=== PATIENT | female | born 1950 | race Caucasian/White ===

== ENCOUNTER 2024-01-29 11:06 | Outpatient (AMB) | payer MEDICARE, SELFPAY ==
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
== END 2024-01-29 12:13 | disposition home or self-care (01) ==
LOC: HO.HOP 11:06
PROVIDERS: Visit Provider Clinical Nurse Specialist Psychiatric/Mental Health
DX: F41.1 Generalized anxiety disorder (principal)
CPT/HCPCS: 90792

== ENCOUNTER → 2024-01-29 11:06 | Outpatient (BNVA) | payer MEDICARE, SELFPAY | PROVIDERS: Visit Provider Clinical Nurse Specialist Psychiatric/Mental Health | DX: F41.1 Generalized anxiety disorder (principal) | CPT/HCPCS: 90792 ==

== ENCOUNTER 2024-02-21 12:17 | Outpatient (AMB) | payer MEDICARE, SELFPAY ==
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
== END 2024-02-21 12:50 | disposition home or self-care (01) ==
LOC: HO.HOP 12:17
PROVIDERS: Visit Provider Clinical Nurse Specialist Psychiatric/Mental Health
DX: F41.1 Generalized anxiety disorder (principal)
CPT/HCPCS: 90833; 99214

== ENCOUNTER → 2024-02-21 12:17 | Outpatient (BNVA) | payer MEDICARE, SELFPAY | PROVIDERS: Visit Provider Clinical Nurse Specialist Psychiatric/Mental Health | DX: F41.1 Generalized anxiety disorder (principal) | CPT/HCPCS: 99212 ==

== ENCOUNTER 2024-04-17 11:42 | Outpatient (AMB) | payer MEDICARE, SELFPAY ==
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
== END 2024-04-17 17:34 | disposition home or self-care (01) ==
LOC: HO.HOP 11:42
PROVIDERS: Visit Provider Clinical Nurse Specialist Psychiatric/Mental Health
DX: F41.1 Generalized anxiety disorder (principal)
CPT/HCPCS: 99214

== ENCOUNTER → 2024-04-17 11:42 | Outpatient (BNVA) | payer MEDICARE, SELFPAY | PROVIDERS: Visit Provider Clinical Nurse Specialist Psychiatric/Mental Health | DX: F41.1 Generalized anxiety disorder (principal) | CPT/HCPCS: 99212 ==

== ENCOUNTER 2024-06-19 11:39 | Outpatient (AMB) | payer MEDICARE, SELFPAY ==
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
== END 2024-06-19 12:10 | disposition home or self-care (01) ==
LOC: HO.HOP 11:39
PROVIDERS: Visit Provider Clinical Nurse Specialist Psychiatric/Mental Health
DX: F41.1 Generalized anxiety disorder (principal)
CPT/HCPCS: 99214

== ENCOUNTER → 2024-06-19 11:39 | Outpatient (BNVA) | payer MEDICARE, SELFPAY | PROVIDERS: Visit Provider Clinical Nurse Specialist Psychiatric/Mental Health | DX: F41.1 Generalized anxiety disorder (principal); F32.A Depression, unspecified | CPT/HCPCS: 99212 ==

== ENCOUNTER 2024-08-14 14:51 | Outpatient (AMB) | payer MEDICARE, SELFPAY ==
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
== END 2024-08-14 14:52 | disposition home or self-care (01) ==
LOC: HO.HOP 14:51
PROVIDERS: Visit Provider Clinical Nurse Specialist Psychiatric/Mental Health
DX: F41.1 Generalized anxiety disorder (principal)
CPT/HCPCS: 99214

== ENCOUNTER → 2024-08-14 14:51 | Outpatient (BNVA) | payer MEDICARE, SELFPAY | PROVIDERS: Visit Provider Clinical Nurse Specialist Psychiatric/Mental Health | DX: F41.1 Generalized anxiety disorder (principal) | CPT/HCPCS: 99212 ==

== ENCOUNTER 2024-10-02 13:12 | Outpatient (AMB) | payer MEDICARE, SELFPAY ==
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
--- OUTSIDE RECORDS SUMMARY | 2024-10-02 14:35 | XMS_ITS | Continuity of Care Document ---
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 Name Role Phone Sindy Bajwa Primary Care Physician [phone] [place] [facility] [place]): [place] 09/30/24 [facility] [address] [address]- Attending Physician: Sindy Bajwa Admitting Physician: Sindy Bajwa Referring Physician: Sindy Bajwa Encounter Type: One Time OP Allergies, Adverse Reactions, Alerts Substance Criticality Severity Reaction Reaction Severity Status penicillin Active venlafaxine rash Active Immunizations Given and Recorded Vaccine Date Status Refusal Reason influenza virus vaccine, inactivated 07/10/23 Jimenez rded influenza virus vaccine, inactivated 08/25/20 Jimenez rded SARS-CoV-2(COVID-19)mRNA-LNP vac([id number]) 07/10/23 Recorded [id number] bivalent booster vax 06/18/22 Recorded tetanus/diphtheria/pertussis, acel(Tdap) 04/10/22 Given tetanus/diphtheria/pertussis, acel(Tdap) 01/07/15 Recorded zoster vaccine, inactivated 03/15/22 Recorded zoster vaccine, inactivated 12/23/21 Recorded SARS-CoV-2 (COVID-19) mRNA-1273 vaccine 09/10/21 R ecorded SARS-CoV-2 (COVID-19) mRNA BNT-162b2 vac 12/27/20 Recorded SARS-CoV-2 (COVID-19) mRNA BNT-162b2 vac 12/05/20 Recorded Zoster Vaccine Live 03/12/14 Recorded tetanus-diphtheria toxoids (Td) 08/19/04 Recorded Medications B-Complex SR oral tablet, extended release By Mouth, Daily, 0 Refills, Maintenance, 01/16/23 1:57:00 PM EDT, Partial fill upon patient request if the prescription is for a schedule II opioid drug. Start Date: 01/16/23 Status: Ordered Repeat number: 1 fluticasone 50 mcg/inh inhalation powder 1 puffs, Inhalation, 2 times a day, # 1 each, 3 Refills, Maintenance, 08/20/23 4:22:00 PM EST, Pow[place], [facility]/pharmacy #[id number], Partial fill upon patient request if the prescription is for a schedule II opioid drug., 162, cm, 08/20/23 15:22:00 EST, Height Start Date: 08/20/23 Status: Ordered Quantity: 1.0 Unit: each Repeat number: 4 fluticasone 50 mcg/inh nasal spray 2 sprays = 100 mcg, Nares, Both, Daily in AM, # 16 Gm, 11 Refills, Maintenance, 08/08/24 7:31:00 AMEST, [place], [facility]/pharmacy #[id number], Partial fill upon patient request if the prescription is for a schedule II opioid drug., 2 sprays Nares, Both Daily in AM, 162, cm, 06/20/24 10:50:00 EDT, Height, 78.4, kg, 06/20/24 10:50:00 EDT, Dry Weight Start Date: 08/08/24 Status: Ordered Quantity: 16.0 Unit: g Repeat number: 12 hydrocortisone 2.5% topical cream 1 application, Topically, 3 times a day, # 30 Gm, 0 Refills, Maintenance, 09/06/23 2:01:00 PM EST, Cream, [facility]/pharmacy #[id number], Partial fill upon patient request if the prescription is for a schedule II opioid drug., 1 application Topically 3 times a day, 162, cm, 08/20/23 15:22:00 EST, Height Start Date: 09/06/23 Status: Ordered Quantity: 30.0 Unit: g Repeat number: 1 Lipitor 10 mg oral tablet 1 tablet = 10 mg, By Mouth, Daily, # 90 tablet, 3 Refills, Maintenance, 09/02/24 12:28:00 PM EST, Tablet, [id number], Partial fill upon patient request if the prescription is for a schedule II opioid drug., 162, cm, 06/20/24 10:50:00 EDT, Height, 78.4, kg, 06/20/24 10:50:00 EDT, Dry Weight Start Date: 09/02/24 Status: Ordered Quantity: 90.0 Unit: tablet Repeat number: 4 Magnesium Citrate By Mouth, 0 Refills, Maintenance, 08/20/23 3:21:00 PM EST, Partial fill upon patient request if theprescription is for a schedule II opioid drug. Start Date: 08/20/23 Status: Ordered Repeat number: 1 naproxen 250 mg oral tablet 250 mg, 1, tablet, By Mouth, 2 times a day, # 60 tablet, Refills 0, Maintenance, 10/02/23 10:37:00 AMEST, Partial fill upon patient request if the prescription is for a schedule II opioid drug. Start Date: 10/02/23 Status: Ordered Quantity: 60.0 Unit: tablet Repeat number: 1 propranolol 10 mg oral tablet See Instructions, Take 1-2 tablet oral every 12 hours as needed for acute anxiety, # 90 tablet, Refills 3, Tot. Refills 3, Maintenance, 08/20/23 4:24:00 PM EST, Instructions Replace Required Details,Route to Pharmacy Electronically, [facility]/pharmacy #[id number], Partial fill upon patient request if the prescription is for a schedule II opioid drug., 162, cm, 08/20/23 15:22:00 EST, Height Start Date: 08/20/23 Status: Ordered Quantity: 90.0 Unit: tablet Repeat number: 4 PROzac 20 mg oral capsule 20 mg, 1, capsule, By Mouth, Daily, # 90 capsule, Refills 3, Tot. Refills 3, Maintenance, 08/20/23 4:20:00 PM EST, Route to Pharmacy Electronically, [facility]/pharmacy #[id number], Partial fill upon patient request if the prescription is for a schedule II opioid drug., 162, cm, 08/20/23 15:22:00 EST, Height Start Date: 08/20/23 Stop Date: 08/14/24 Status: Ordered Quantity: 90.0 Unit: capsule Repeat number: 4 traZODone 50 mg oral tablet 1-2 tablet, By Mouth, Daily at bedtime, # 180 tablet, Refills 3, Tot. Refills 3, Maintenance, 10/28/23 10:38:00 AM EST, Route to Pharmacy Electronically, [facility]/pharmacy #[id number], 162, cm, 10/02/23 10:35:00 EST, Height Start Date: 10/28/23 Stop Date: 10/22/24 Status: Ordered Quantity: 180.0 Unit: tablet Repeat number: 4 Problem List Condition Confirmation Course Effective Dates Status H ealth Status Informant Anxiety Confirmed Active Vaginal atrophy Confirmed Active Diverticulosis Confirmed Active Healthy female adult Confirmed Active History of colon polyps Confirmed Active HLD (hyperlipidemia) Confirmed Active Tibial collateral bursitis [Yesy-Stieda], right leg Confirmed Active Insomnia Confirmed Active Menopause Confirmed Active Mild cognitive impairment Confirmed Active Osteopenia Confirmed Active Bilateral leg pain Confirmed Active Right knee pain Confirmed Active Major depression, recurrent Confirmed Active Restless leg Confirmed Active Spinocerebellar ataxia type 27 Confirmed Active Social History Social History Type Response Smoking Status Never smoker entered on: 10/15/15 Sex Sex Representation Female (finding) Cardiology * Event Display: VL Venous Dup Scan Venous Insuf LE Bilat Authored Date: Demographics Procedure Information Patient name: LISA SETHI Procedure date: 09/23/2024 3:02 PM Corporate Proc. sub type: Veins: Lower Extremities Venous Insufficiency, Venous Duplex Scan Gender: Female Venous Insuf LE Bilat. Date of : 1950 Accession No: [id number] Age: 73 year(s) Account No: [id number] Patient status: Routine Procedure Staff Admit Status: Outpatient Attending Physician: Chavez SULTANA Probe: L9-3 Ordering physician: Chavez SULTANA Technical quality: Adequate visualization Referring Physician: Chavez SULTANA Facility: [facility] Card Staff Development Coordinator Rn: Eddie Casarez Interpreting physician: Karyna Fan Study location: [facility] Procedure consent obtained: Indications No Pain in limb. LE Veins Diagram Right Left The diagram is not intended for diagnosis. It is provided for reference only. LE Venous Insufficiency Findings Right Left AP Reflux AP Reflux DIAM Time DIAM Time Location (mm) (sec) Thrombosis (mm) (sec) Thrombosis Common Femoral 0.6 0.6 Prox Femoral 0 0 Mid Femoral 0 0.5 Dist Femoral 0 0.6 Popliteal 0 0 Right Left AP Reflux AP Reflux DIAM Time DIAM Time Location (mm) (sec) Thrombosis (mm) (sec) Thrombosis Sapheno Femoral Junction 7.5 0.5 8.1 1.9 GSV High Thigh 3.9 0 3.4 0 GSV Mid Thigh 4.3 0 2.6 0.5 GSV Low Thigh 3.8 0 2 0.6 GSV Knee 2.9 0.6 2.4 0.6 GSV High Calf 2 0 2.3 0.6 SSV High Calf 2.2 0 2.4 0 SSV Low Calf 3 0 3 5.41 Physician Conclusions Summary: Right side: There is reflux lasting 0.5 seconds at the Saphenofemoral Junction in the Great Saphenous vein. The Great Saphenous Vein does not appear aneurysmal. There is no evidence of deep vein thrombosis in the segments insonated. There is deep vein reflux. There is no reflux in the Small Saphenous vein. Exam was performed with patient in Reverse Trendelenburg position. Left side: There is reflux lasting 1.9 seconds at the Saphenofemoral Junction in the Great Saphenous vein. The Great Saphenous Vein does not appear aneurysmal. There is no evidence of deep vein thrombosis in the segments insonated. There is deep vein reflux. There is reflux lasting 5.4 seconds in the Small Saphenous vein. Thickened wall left small saphenous vein. Exam was performed with patient in Reverse Trendelenburg position. * Event Display: VL Venous Dup Scan Venous Insuf LE Bilat Authored Date: Patient Care team information Care Team Personnel Name: Sindy Bajwa Position: [facility] Associate Professional Member Role: PCP Address: [address] [place] [address]- DR Telecom: Name: Hermes Aguero MD Position: [facility] LENS ASSISTANT Member Role: Lifetime LENS ASSISTANT Physician Address: [address] [place] [address] [facility] [place] [address]- Telecom: Care Team Related Persons Name: PATRICK GONZALEZ Insurance Providers Guarantor name: JOSSIE GONZALEZ My Pick [facility] Information #: 1 Payer: MEDICARE PART B OUTPT Member Number: [id number] Policy Number: JERMAIN Group Number: JERMAIN Health Plan Information #: 2 Payer: MEDEX Member Number: [id number] Policy Number: JERMAIN Group Number: NA
--- OUTSIDE RECORDS SUMMARY | 2024-10-02 14:35 | XMS_ITS | Continuity of Care Document ---
Author Organization [facility] Address [address] [address]- Care Team Providers Care Cabinet Worker Name Role Phone Sindy Bajwa Primary Care Physician [phone] [id number] 09[facility]24/[facility] [address] [address] Encounter Type: Triage Allergies, Adverse Reactions, Alerts Substance Criticality Severity Reaction Reaction Severity Status penicillin Active venlafaxine rash Active Immunizations Given and Recorded Vaccine Date Status Refusal Reason influenza virus vaccine, inactivated 07/10/23 Jimenez rded influenza virus vaccine, inactivated 08/25/20 Jimenez rded SARS-CoV-2(COVID-19)mRNA-LNP vac([id number]) 07/10/23 Recorded [id number] bivalent booster vax 06/18/22 Recorded tetanus/diphtheria/pertussis, acel(Tdap) [...] Refills, Maintenance, 08/20/23 4:22:00 PM EST, [place], [id number], Partial fill upon patient request if the prescription is for a schedule II opioid drug., 162, cm, 08/20/23 15:22:00 EST, Height Start Date: 08/20/23 Status: Ordered Quantity: 1.0 Unit: each Repeat number: 4 fluticasone 50 mcg/inh nasal spray 2 sprays = 100 mcg, Nares, Both, Daily in AM, # 16 Gm, 11 Refills, Maintenance, 08/08/24 7:31:00 AMEST, [place], [id number], Partial fill upon patient request [...] Refills, Maintenance, 09/06/23 2:01:00 PM EST, [place], [id number], Partial fill upon patient request [...] Instructions Replace Required Details,Route to Pharmacy Electronically, [facility]/pharmacy #[id number], Partial fill upon patient request if the prescription is for a schedule II opioid drug., 162, cm, 08/20/23 15:22:00 EST, Height Start Date: 08/20/23 Status: Ordered Quantity: 90.0 Unit: tablet Repeat number: 4 PROzac 20 mg oral capsule 20 mg, 1, capsule, By Mouth, Daily, # 90 capsule, Refills 3, Tot. Refills 3, Maintenance, 08/20/23 4:20:00 PM EST, Route to Pharmacy Electronically, [facility]/pharmacy #[id number], Partial fill upon patient request if [...] 10:38:00 AM EST, Route to Pharmacy Electronically, [facility]/pharmacy #[id number], 162, cm, 10/02/23 10:35:00 EST, Height [...] on: 10/15/15 Sex Sex Representation Female (finding) Patient Care team information Care Team Personnel Name: Sindy Bajwa Position: [facility] Associate Professional Member Role: PCP Address: [address] [place] [address] [place] [address]- Telecom: Name: Laci VALENCIA, Hermes Dupree Position: [facility] EVALUATION ADVISOR Member Role: Lifetime EVALUATION ADVISOR Physician Address: [address] [place] [address] [facility] [place] [address]- Telecom: Care Team Related Persons Name: PATRICK GONZALEZ Insurance Providers Guarantor name: JOSSIE LISA Health Plan Information #: 1 Payer: MEDICARE PART B OUTPT Member Number: NA Policy Number: NA Group Number: NA Health Plan Information #: 2 Payer: MEDEX Member Number: NA Policy Number: NA Group Number: NA
== END 2024-10-02 13:41 | disposition home or self-care (01) ==
LOC: HO.HOP 13:12
PROVIDERS: Visit Provider Clinical Nurse Specialist Psychiatric/Mental Health
DX: F41.1 Generalized anxiety disorder (principal)
CPT/HCPCS: 99214

== ENCOUNTER → 2024-10-02 13:12 | Outpatient (BNVA) | payer MEDICARE, SELFPAY | PROVIDERS: Visit Provider Clinical Nurse Specialist Psychiatric/Mental Health | DX: F41.1 Generalized anxiety disorder (principal) | CPT/HCPCS: 99212 ==

== ENCOUNTER 2024-11-20 11:46 | Outpatient (AMB) | payer MEDICARE, SELFPAY ==
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
--- OUTSIDE RECORDS SUMMARY | 2024-11-20 14:20 | XMS_ITS | Continuity of Care Document ---
Author Organization [facility] Address [address] [address]- Care Team Providers Care Ui Lead Developer Name Role Phone Sindy Bajwa Primary Care Physician [phone] Encounter [facility] [id number] Date(s): 09/23/24 - 10/23/24 [facility] [address] [address]- Attending Physician: Lenny Davis Admitting Physician: Lenny Davis Referring Physician: Lenny Davis Encounter Type: Triage Allergies, Adverse Reactions, Alerts Substance Criticality Severity Reaction Reaction Severity Status penicillin Active venlafaxine rash Active Immunizations Given and Recorded Vaccine Date Status Refusal Reason influenza virus vaccine, inactivated 07/10/23 Jimenez rded influenza virus vaccine, inactivated 08/25/20 Jimenez rded SARS-CoV-2(COVID-19)mRNA-LNP vac([id number]) 07/10/23 Recorded [id number] bivalent booster vax 06/18/22 Recorded tetanus/diphtheria/pertussis, acel(Tdap) [...] Refills, Maintenance, 08/20/23 4:22:00 PM EST, [place], [facility]/pharmacy #[id number], Partial fill upon patient request if the prescription is for a schedule II opioid drug., 162, cm, 08/20/23 15:22:00 EST, Height Start Date: 08/20/23 Status: Ordered Quantity: 1.0 Unit: each Repeat number: 4 fluticasone 50 mcg/inh nasal spray 2 sprays = 100 mcg, Nares, Both, Daily in AM, # 16 Gm, 11 Refills, Maintenance, 08/08/24 7:31:00 AMEST, [place], [facility]/pharmacy #0838, Partial fill upon patient request if [...] Refills, Maintenance, 09/06/23 2:01:00 PM EST, [place], [facility]/pharmacy #0838, Partial fill upon patient request if [...] Instructions Replace Required Details,Route to Pharmacy Electronically, [facility]/pharmacy #0838, Partial fill upon patient request if the prescription is for a schedule II opioid drug., 162, cm, 08/20/23 15:22:00 EST, Height Start Date: 08/20/23 Status: Ordered Quantity: 90.0 Unit: tablet Repeat number: 4 PROzac 20 mg oral capsule 20 mg, 1, capsule, By Mouth, Daily, # 90 capsule, Refills 3, Tot. Refills 3, Maintenance, 08/20/23 4:20:00 PM EST, Route to Pharmacy Electronically, [facility]/pharmacy #0838, Partial fill upon patient request if [...] 10:38:00 AM EST, Route to Pharmacy Electronically, [facility]/pharmacy #0838, 162, cm, 10/02/23 10:35:00 EST, Height [...] Active Spinocerebellar ataxia type 27 Confirmed Active Chronic venous hypertension (idiopathic) with other complications of right lower extremity Confirmed Active Chronic venous hypertension (idiopathic) with other complications of left lower extremity Confirmed Active Social History Social History Type Response Smoking Status Never smoker entered on: 10/15/15 Sex Sex Representation Female (finding) Patient Care team information Care Team Personnel Name: Sindy Bajwa Position: [facility] Associate Professional Member Role: PCP Address: [address] [place] [address] [place] [address]- Telecom: Name: Laci VALENCIA, Hermes Dupree Position: [facility] SURGERY ASSISTANT Member Role: Lifetime SURGERY ASSISTANT Physician Address: [address] [place] [address] [facility] [employer] [place] [address] Telecom: Care Team Related Persons Name: PATRICK GONZALEZ Insurance Providers Guarantor name: JOSSIE LISA Health Plan Information #: 1 Payer: MEDICARE PART B OUTPT Member Number: NA Policy Number: NA Group Number: NA Health Plan Information #: 2 Payer: MEDEX Member Number: NA Policy Number: NA Group Number: NA
--- OUTSIDE RECORDS SUMMARY | 2024-11-20 14:20 | XMS_ITS | Continuity of Care Document ---
Author Organization [facility] Address [address] [place] [address]- Care Team Providers Care Agricultural Research Engineer Name Role Phone Sindy Bajwa Primary Care Physician Encounter [facility] [id number] Date(s): 10/24/24 - 10/31/24 [facility] [address] [place] [address]- Encounter Diagnosis Chronic venous hypertension (idiopathic) with other complications of right lower extremity(Discharge Diagnosis) - 10/18/24 Chronic venous hypertension (idiopathic) with other complications of left lower extremity(Discharge Diagnosis) - 10/18/24 Spinocerebellar ataxia(Discharge Diagnosis) - 10/24/24 Attending Physician: Karyna VALENCIA, Luis Fan Referring Physician: Sindy Bajwa Encounter Type: Office Visit Allergies, Adverse Reactions, Alerts Substance Criticality Severity Reaction Reaction Severity Status penicillin Active venlafaxine rash Active Immunizations Given and Recorded Vaccine Date Status Refusal Reason influenza virus vaccine, inactivated 07/10/23 Jimenez rded influenza virus vaccine, inactivated 08/25/20 Jimenez rded SARS-CoV-2(COVID-19)mRNA-LNP vac([id number]) 07/10/23 Recorded [id number] bivalent booster vax 06/18/22 Recorded tetanus/diphtheria/pertussis, acel(Tdap) [...] Gm, 11 Refills, Maintenance, 08/08/24 7:31:00 AMEST, [place], [id number], Partial fill upon patient request [...] Refills, Maintenance, 09/02/24 12:28:00 PM EST, Tablet, [facility] #[id number], Partial fill upon patient request [...] Instructions Replace Required Details,Route to Pharmacy Electronically, [facility]/pharmacy #[id number], Partial fill upon patient request [...] 4:20:00 PM EST, Route to Pharmacy Electronically, [facility]/pharmacy #[id number], Partial fill upon patient request [...] 10:38:00 AM EST, Route to Pharmacy Electronically, 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 Chronic venous hypertension (idiopathic) with other complications of right lower extremity Confirmed Active Chronic venous hypertension (idiopathic) with other complications of left lower extremity Confirmed Active Diagnosis Diagnosis Type Effective Dates Health Status Clinical Service Informant Chronic venous hypertension (idiopathic) with other complications of right lower extremity Discharge Diagnosis 10/18/24 Chronic venous hypertension (idiopathic) with other complications of left lower extremity Discharge Diagnosis 10/18/24 Spinocerebellar ataxia Discharge Diagnosis 10/24/24 Vital Signs Most recent to oldest [Reference Range]: 1 Height 162 cm (10/24/24 1:46 PM) Weight 74.7 kg (10/24/24 1:46 PM) Oxygen Saturation [94-100 %] 100 % (10/24/24 1:46 PM) Pulse Rate [55-90 bpm] 79 bpm (10/24/24 1:46 PM) Body Mass Index [18.5-24.99 kg/m2] 28.46 kg/m2 *H* (10/24/24 1:46 PM) Blood Pressure [90-138/55-84 mm Hg] 134/ 65mm Hg (10/24/24 1:46 PM) Mode of Delivery (Oxygen) Room air (10/24/24 1:46 PM) Blood pressure sites Arm, left (10/24/24 1:46 PM) Weight Obtained Via Bed scale (10/24/24 1:46 PM) Social History Social History Type Response Smoking Status Never smoker entered on: 10/15/15 Sex Sex Representation Female (finding) Note * Rabia Couch: PERFORM Event Display: Patient Education/Instruction Authored Date: [id number] Ambulatory Adult Visit Summary [facility] [address] [facility] [address] [place] [address] Name: JOSSIE GONZALEZ : 1950?? Visit: 10/24/2024 13:39?? Ambulatory Visit Instructions ?? Your Care Team Primary Care Provider Sindy Bajwa? This Visit Provider Karyna VALENCIA, Luis Fan Your Diagnosis Chronic venous hypertension (idiopathic) with other complications of right lower extremity Chronic venous hypertension (idiopathic) with other complications of left lower extremity Spinocerebellar ataxia Vitals Signs Pulse Rate: 79 bpm Height: 162 cm Systolic Blood Pressure: 134 mm Hg Weight: 74.7 kg Diastolic Blood Pressure: 65 mm Hg Body Mass Index:??28.46 kg/m2??High Oxygen Saturation: 100 % Body surface area: 1.83 Medications The list below reflects the information in our records and provided by you today along with any changes made during this visit. Please continue your medications until treatment is completed or stopped by your provider. If this is different from the information you have or there are other questions,please contact the prescribing provider. What How Much When Instructions Unchanged Atorvastatin (Lipitor 10 mg oral tablet) 1 tab(s) Oral Daily Unchanged Fluoxetine (PROzac 20 mg oral capsule) 1 capsule Oral Daily Duration: 90 Days Unchanged Fluticasone (fluticasone 50 mcg/ inh inhalation powder) 1 puff(s) Inhalation Twice a day Unchanged Fluticasone Nasal (fluticasone 50 mcg/ inh nasal spray) 2 spray(s) Nares, Both Daily in the morning Unchanged Hydrocortisone Topical (hydrocortisone 2.5% topical cream) 1 priyanka Topically 3 times a day Unchanged Magnesium Citrate Oral Unchanged Multivitamin (B-Complex SR oral tablet, extended release) Oral Daily Unchanged Naproxen (naproxen 250 mg oral tablet) 1 tab(s) Oral Twice a day Unchanged Propranolol (propranolol 10 mg oral tablet) See instructions Take 1-2 tablet oral every 12 hours as needed for acute anxiety ?? Unchanged Trazodone (traZODone 50 mg oral tablet) 1-2 tablet Oral Daily at Bedtime Duration: 90 Days Medications and Immunizations Administered Medications Given During Visit No medications given during this visit.?? Allergies (NKA means No Known Allergies) penicillin venlafaxine??(rash) Common Emergency Awareness Tips IS IT A STROKE? Act FAST and Check for these signs: FACE Does the face look uneven? ARM Does one arm drift down? SPEECH Does their speech sound strange? TIME Call at any sign of stroke ?? Heart Attack Signs Chest discomfort: Most heart attacks involve discomfort in the center of the chest and lasts more than a few minutes, or goes away and comes back. It can feel like uncomfortable pressure, squeezing, fullness or pain. Discomfort in upper body: Symptoms can include pain or discomfort in one or both arms, back, neck, jaw or stomach. Shortness of breath: With or without discomfort. Other signs: Breaking out in a cold sweat, nausea, or lightheaded. Remember, MINUTES DO MATTER. If you experience any of these heart attack warning signs, call to get immediate medical attention! ?? Smoking can increase your chances of developing chronic health problems and can cause harmful effects to other family members in your house. If you smoke, you are strongly encouraged to quit. Please call [facility] at [phone] or 6-840-024Plazapoints ([employer]) ([phone]) or log in to [email or web address] for referrals to smoking cessation programs. ?? The National Suicide Prevention Hotline is available 16/04 if you or someone you know needs to find a reason to keep living. By calling 5-890-908-[employer] (7454) you'll be connected to a skilled, trained counselor at a crisis center in your area. [facility] Portal You can view and manage your care through the patient portal or by using a health care priyanka of your choosing. [employer] is a website that allows you to securely view your medical information including your hospital discharge summary, office visit summaries, medications and follow-up visits. You can also request appointments, renew medications, and request access to your medical information using a health care priyanka of your choosing, or just ask a question. You can enroll at [email or web address] or register during your next office visit. [facility], in keeping with [facility] guidance, no longer requires face masks for staff, patientsor visitors in most situations. Similiar to time spent indoors at other locations, there is the chance that you were exposed to repiratory viruses during your time with us (such as flu or COVID-19). If you develop symptoms concerning for a viral respiratory infection, please seek testing (and treatment if indicated) from your medical provider or home test kit. ?? Disclaimer: The information provided is of a general nature and is intended to be used in conjunction with the recommendations and advice of your health care practitioner. Every effort has been made to ensure that the information provided is accurate and complete at the time it is provided to you however, as your needs change, or, as new information becomes available, different or additional instructions may be required. ?? If you have questions, please consult with your primary care provider or pharmacist, as appropriate. This information is not intended to serve as substitution for assessment and evaluation by a qualified health care provider. If you do not have a primary care provider, you may find a [facility] provider by calling [facility] at [phone]. Patient Care team information Care Team Personnel Name: Sindy Bajwa Position: [facility] Associate Professional Member Role: PCP Address: [address] [place] [address] [place] [address]- [place] [employer]: Name: Hermes Aguero MD Position: [facility] TOWEL WEAVER Member Role: Lifetime TOWEL WEAVER Physician Address: [address] [place] [address] Women's Health [place] [address]- Telecom: Care Team Related Persons Name: PATRICK GONZALEZ Insurance Providers Guarantor name: JOSSIE GONZALEZ Health Plan Information #: 2 Payer: MEDEX Member Number: [id number] Policy Number: NA Group Number: NA Health Plan Information #: 1 Payer: MEDICARE PART B OUTPT Member Number: [id number] Policy Number: NA Group Number: NA
== END 2024-11-20 12:17 | disposition home or self-care (01) ==
LOC: HO.HOP 11:46
PROVIDERS: Visit Provider Clinical Nurse Specialist Psychiatric/Mental Health
DX: F41.1 Generalized anxiety disorder (principal); F34.1 Dysthymic disorder
CPT/HCPCS: 99214

== ENCOUNTER → 2024-11-20 11:46 | Outpatient (BNVA) | payer MEDICARE, SELFPAY | PROVIDERS: Visit Provider Clinical Nurse Specialist Psychiatric/Mental Health | DX: F41.1 Generalized anxiety disorder (principal); F34.1 Dysthymic disorder | CPT/HCPCS: 99212 ==

== ENCOUNTER 2025-05-21 11:41 | Outpatient (AMB) | payer MEDICARE, SELFPAY ==
--- OUTSIDE RECORDS SUMMARY | 2017-10-02 01:00 | XMS_ITS | Encounter Summary ---
Author Organization [facility] Address [address] [facility] [address] [place] [address] Phone Care Team Providers Care Log Deckman Name Role Phone Unavailable Primary Care Provider Unavailabl e Encounter Details Date Type Department Care Team (Late st Contact Info) Description 10/02/2017 Hospital Encounter [facility] OUT[facility] [address] [place] [phone] Kiran Aguilera MD [address] [place] [phone] Tiffani@[email or web address]. [facility] Social History Tobacco Use Types Packs/Day Years [...] 2:30 PM EDT Office Visit [facility] [address] [place] [address] Luis Clemente MD 60 [place] [address] Micha@[email or web address] documented as of this encounter Procedures Procedure [...] It is not the complete legal health record.[facility]
--- OUTSIDE RECORDS SUMMARY | 2017-10-02 01:05 | XMS_ITS | Encounter Summary ---
Author Organization [facility] Address [address] [facility] [address] [place] [address] Phone Care Team Providers Care Cask Maker Name Role Phone Unavailable Primary Care Provider Unavailabl e Encounter Details Date Type Department Care Team (Late st Contact Info) Description 10/02/2017 12:05 AM EST Hospital Encounter [facility] OUTSIDE [address] [place] [address] Kiran Aguilera MD [address] [place] [phone] [email or web address] Social History Tobacco Use Types Packs/Day [...] Description 01/06/2026 2:30 PM EDT Office Visit [facility] [address] [facility] 9th [place] [address] Luis Clemente MD 60 [place] [address] Micha@[email or web address] documented as of this encounter [...] It is not the complete legal health record.[facility]
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
--- OUTSIDE RECORDS SUMMARY | 2025-05-21 12:53 | XMS_ITS ---
Author Name [facility] Organization Unknown Care Team Organization Name Specialty Phone Email Start Date End Da te [facility] Monse Brown Primary Care 08/01/2022 05/12/2024
--- OUTSIDE RECORDS SUMMARY | 2025-05-21 12:53 | XMS_ITS | Encounter Summary ---
Author Organization [facility] Address [address] [place] [address] Phone Care Team Providers Care Leather Grader Name Role Phone Paty Johnson MD Primary Care Provid er Kiran Aguilera MD Unavailable [phone] Jadyn Bush PT Unavailable [email or web address] Sherrie Padilla MD Primary Care Provider [phone] Sindy Byrne Primary Care Provider Encounter Details Date Type Department Care Team (Late st Contact Info) Description 12/27/2022 Procedure Pass [facility] - MRI, [address] [address] Social History Tobacco Use Types Packs/Day Years Used Date Smoking Tobacco: Never Assessed Comments Unknown Sex and Gender Information Value Date Recorded Sex Assigned at Not on file Legal Sex Female 11:49 AM EDT Gender Identity Not on file Sexual Orientation Not on file documented as of this encounter Plan of Treatment Upcoming Encounters Date Type Department Care Team (Late st Contact Info) Description 01/06/2026 2:30 PM EDT Office Visit [facility] [address] [address] Luis Clemente MD [address] [place] [address] [email or web address] documented as of this encounter Visit Diagnoses Not on filedocumented in this encounter Additional Health Concerns Infection Onset Date Last Indicated Resolved Time COVID-19 Comment:See infection control note. 12/27/2022 12/08/2022 12/08/2022 12/27/2022 8:34 AM E DT documented as of this encounter Care Teams Leather Grader Relationship Specialty Start Date End Date Paty Johnson MD [address] [address] PCP - General Internal Medicine 03/07/22 04/25/23 Sherrie Padilla MD [address] [place] [id number] PCP - General Internal Medicine 04/26/23 03/12/24 Sindy Byrne PA [address] [place] [id number] PCP - General Physician Base Filler Operator 03/13/24 Kiran Aguilera MD [address] [place] [id number] [email or web address] Referring Physician Neurology 04/19/23 Jadyn Bush, PT [address] [place] [phone] [email or web address] Physical Therapist Physical Therapy 04/19/23 documented as of this encounter Additional Source Comments The information contained in this document represents components of the legal health record. It is not the complete legal health record.[facility]
--- OUTSIDE RECORDS SUMMARY | 2025-05-21 12:53 | XMS_ITS | Clinical Summary ---
Author Organization [facility] Address [address] [place] [address] Phone Care Team Providers Care University Relations Director Name Role Phone Kiran Aguilera MD Unavailable [phone] Jadyn Bush PT Unavailable [email or web address] Sindy Byrne Primary Care Provider Allergies Active Allergy Reactions Criticality Noted Date Comments Penicillins 05/12/2022 Venlafaxine Rash Low 10/18/2023 Medications atorvastatin (LIPITOR) 10 MG tablet TAKE 1 TABLET BY MOUTH EVERYDAY AT BEDTIME 2 Active traZODone (DESYREL) 50 MG tablet TAKE 1 TABLET BY MOUTH EVERYDAY AT BEDTIME 2 Active FLUoxetine (PROZAC) 10 MG capsule 3 Active dalfampridine (AMPYRA) 5 mg capsule Take 1 capsule (5 mg total) by mouth 2 (two) times a day. 180 capsule 4 Active Additional Information Patient taking differently:5 mg Oral 2 times daily,3 times daily, Reported on 11/26/2024 dalfampridine, bulk, PowdIndications :Spinocerebella r ataxia type 27,Balance disorder Take 5 mg by mouth 3 (three) times a day. Take 5 mg by mouth three times daily 2 g 2 5 10/02/19 26 Active Additional Information Patient not taking.Reported on 11/26/2024 gabapentin (NEURONTIN) 300 MG capsule Take 2 capsules (600 mg total) by mouth nightly at bedtime as needed. 120 capsule 3 Active Additional Information Patient not taking.Reported on 11/26/2024 dalfampridine (AMPYRA) 10 mg Tb12 ER tabletIndicatio ns:Spinocerebel lar ataxia type 27 Take 1 tablet (10 mg total) by mouth 2 (two) times a day. Do not divide, crush, chew, or dissolve. 10 mg to be taken upon waking in the morning and the second dose of 10 mg to be taken 8 hours later. DO NOT take more than 2 doses in any 24 hour period. 180 tablet 3 Active Active Problems Problem Noted Date Diagnosed Date Imbalance 11/15/2023 Visual disturbance 11/15/2023 Encounters Date Type Department Care Team Description 05/04/2025 11:30 AM EDT Telemedicine [facility] Otoneurology [facility] [address] 2nd [place] [address] Kiran Aguilera MD Spinocerebellar ataxia (Primary Dx) 04/03/2025 Telephone [facility] DEPARTMENT OF NEUROLOGY [address] [facility] [address] [place] [address] Donte Veloz MD Medication Prior Authorization (dalfampridine (AMPYRA)) from Last 3 Months Social History Tobacco Use Types Packs/Day Years Used Date Smoking Tobacco: Never Smokeless Tobacco: Never Tobacco Cessation:Counseling Given: Not Answered Alcohol Use Standard Drinks/Week Comments Never 0 [...] on file Sexual Orientation Not on file Last Filed Vital Signs Vital Sign Reading Time Taken Comments Blood Pressure 103/66 11/26/2024 2:44 PM EST Pulse 83 11/26/2024 2:44 PM EST Temperature 36.2 C (97.2 F) 11/26/2024 2:44 PM EST Respiratory Rate - - Oxygen Saturation 99% 11/26/2024 2:44 PM EST Inhaled Oxygen Concentration - - Weight 73.5 kg (162 lb) 11/26/2024 2:44 PM EST Height 162.6 cm (5' 4 ) 11/26/2024 2:44 PM EST Body Mass Index 27.81 11/26/2024 2:44 PM EST Plan of Treatment Upcoming Encounters Date Type Department Care Team (Late st Contact Info) Description 01/06/2026 2:30 PM EDT Office Visit [facility] [address] 9th [place] [address] Luis Clemente MD [address] [place] [address] [email or web address] Health Maintenance Due Date Last Done Comments HEPATITIS C SCREENING 1968 MAMMOGRAM 1990 COLOGUARD 1995 COLONOSCOPY 1995 COLORECTAL CANCER SCREENING 1995 FIT TEST 1995 FOBT 1995 SIGMOIDOSCOPY 1995 VIRTUAL COLONOSCOPY 1995 PNEUMOCOCCAL VACCINES (50+ years) (1 of 1 - PCV) 2000 ZOSTER VACCINES (1 of 2) 2000 OSTEOPOROSIS SCREENING INITI AL (ONE-TIME) 2015 DEPRESSION SCREENING 05/11/2023 05/11/2022 COVID-19 VACCINE (1 - 2023-2 5 season) 2024 RSV VACCINE (1 - 1-dose 75+ series) 2025 LIPID PANEL 08/22/2028 08/22/2023, 08/22/2023 Adult Td,Tdap Booster 04/10/2032 04/10/2022 SMOKING STATUS SCREENING (On ce After 26 Yrs) Completed 11/26/2024 HEPATITIS A VACCINES Aged Out No long er eligible based on patient's age to complete this topic HIB VACCINES Aged Out No longer eligi ble based on patient's age to complete this topic MENINGOCOCCAL VACCINES (ACWY) Aged Out No longer eligible based on patient's age to complete this topic MENINGOCOCCAL VACCINES (B) Aged Out N o longer eligible based on patient's age to complete this topic Medical Devices Not on file Insurance MEDICARE PART A & B [facility] MEDEX SUPPLEMENT MEDICARE PART A & B [employer] MEDEX SUPPLEMENT MEDICARE PART A & B [employer] MEDEX SUPPLEMENT MEDICARE PART A & B [employer] MEDEX SUPPLEMENT MEDICARE PART A & B [employer] MEDEX SUPPLEMENT MEDICARE PART A & B [employer] MEDEX SUPPLEMENT MEDICARE PART A & B [employer] MEDEX SUPPLEMENT MEDICARE PART A & B [employer] SUPPLEMENT MEDICARE PART A & B [facility] MEDEX SUPPLEMENT Care Teams University Relations Director Relationship Specialty Start Date End Date Sindy Byrne PA [address] [place] [address] PCP - General Physician Lead Qa Analyst 03/13/24 Kiran Aguilera MD [address] [place] [phone] [email or web address] Referring Physician Neurology 04/19/23 Jadyn Bush, PT [address] [place] [address] [email or web address] u Physical Therapist Physical Therapy 04/19/23 Additional Source Comments The information contained in this document represents components of the legal health record. It is not the complete legal health record.[facility]
--- OUTSIDE RECORDS SUMMARY | 2025-05-21 12:53 | XMS_ITS | Encounter Summary ---
Author Organization [facility] Address [address] [place] [address] Phone Care Team Providers Care Ball Point Splitter Name Role Phone Paty Johnson MD Primary Care Provid er Kiran Aguilera MD Unavailable [phone] Jadyn Bush PT Unavailable [email or web address] Sherrie Padilla MD Primary Care Provider Sindy Byrne Primary Care Provider Encounter Details Date Type Department Care Team (Late st Contact Info) Description 07/03/2022 Procedure Pass [facility] - MRI, [address] [address] Social History Tobacco Use Types Packs/Day Years [...] PM EDT Office Visit [facility] [address] [address] Luis Clemente MD [address] [place] [address] Micha@[email or web address] documented as of this encounter Visit Diagnoses Not on filedocumented in this encounter Additional Health Concerns Infection Onset Date Last Indicated Resolved Time COVID-19 Comment:See infection control note. 12/27/2022 12/08/2022 12/08/2022 12/27/2022 8:34 AM E DT documented as of this encounter Care Teams Ball Point Splitter Relationship Specialty Start Date End Date Paty Johnson MD [address] [address] PCP - General Internal Medicine 03/07/22 04/25/23 Sherrie Padilla MD [address] [place] [address] PCP - General Internal Medicine 04/26/23 03/12/24 Sindy Byrne PA [address] [place] [address] PCP - General Physician Oil Field Equipment Mechanic Supervisor 03/13/24 Kiran Aguilera MD [address] [place] [phone] Tiffani@[email or web address] Referring Physician Neurology 04/19/23 Jadyn Bush, PT [address] [place] [address] [email or web address]. u Physical Therapist Physical Therapy 04/19/23 documented as of this encounter Additional Source Comments The information contained in this document represents components of the legal health record. It is not the complete legal health record.[facility]
== END 2025-05-21 12:18 | disposition home or self-care (01) ==
LOC: HO.HOP 11:41
PROVIDERS: Visit Provider Clinical Nurse Specialist Psychiatric/Mental Health
DX: F41.1 Generalized anxiety disorder (principal); F34.1 Dysthymic disorder
CPT/HCPCS: 90833; 99213

== ENCOUNTER → 2025-05-21 11:41 | Outpatient (BNVA) | payer MEDICARE, SELFPAY | PROVIDERS: Visit Provider Clinical Nurse Specialist Psychiatric/Mental Health | DX: F41.1 Generalized anxiety disorder (principal); F34.1 Dysthymic disorder | CPT/HCPCS: 99212 ==

== ENCOUNTER 2025-08-27 14:01 | Outpatient (AMB) | payer MEDICARE, SELFPAY ==
--- OUTSIDE RECORDS SUMMARY | 2017-10-02 | XMS_ITS | Encounter Summary ---
Author Organization [facility] Address [address] [facility] [address] [place] [address] Phone Care Team Providers Care Medical Services Manager Name Role Phone Unavailable Primary Care Provider Unavailabl e Encounter Details Date Type Department Care Team (Late st Contact Info) Description 10/02/2017 Hospital Encounter [facility] OUTS[facility] [address] [place] [id number] Kiran Aguilera MD [address] [place] [phone] [email or web address]. [facility] Social History Tobacco Use Types Packs/Day Years Used Date Smoking Tobacco: Never Smokeless Tobacco: Never Alcohol Use Standard Drinks/Week Comments Never 0 (1 standard drink = 0.6 oz pur e alcohol) Education Answer Date Recorded Are you interested in more education? Not on marylu e 01/20/2023 Are you concerned about learning? Not on file 01/20/2023 No 01/20/2023 No 01/20/2023 Digital Access Answer Date Recorded No 02/20/2023 No 02/20/2023 Reliable internet access at home? Not on file 02/20/2023 Device with a working camera? Not on file Comments No Sex and Gender Information Value Date Recorded Sex Assigned at Not on file Legal Sex Female 11:49 AM EDT Gender Identity Not on file Sexual Orientation Not on file documented as of this encounter Plan of Treatment Upcoming Encounters Date Type Department Care Team (Late st Contact Info) Description 01/06/2026 2:30 PM EDT Office Visit [facility] [place] [address] [facility] 9th [place] [address] Luis Clemente MD 60 [place] [address] [email or web address] 04/01/2026 2:30 PM EDT Office Visit [facility] DEPARTMENT OF NEUROLOGY [address] [facility] 835 [place] [address] Donte Veloz MD 55 [facility] [address] [place] [address] [email or web address] documented as of this encounter Procedures Procedure Name Priority Date/Time Associated Diagnosis Comments MRI BRAIN OUTSIDE (NO INTERPRETATION) Routine 10/02/2017 12:00 AM EST documented in this encounter Results * MRI Brain Outside (No Interpretation) (10/02/2017 12:00 AM EST) Narrative [facility] INTERFACES - 05/15/2022 9:28 AM EDT This study is for PACS storage only and not for interpretation. us Kiran Aguilera MD IMG OUTSIDE IMAGING W/OUT IN TERPRETATION Final Result [facility] INTER[facility] documented in this encounter Visit Diagnoses Not on filedocumented in this encounter Additional Health Concerns Infection Onset Date Last Indicated Resolved Time COVID-19 Comment:See infection control note. 12/27/2022 12/08/2022 12/08/2022 12/27/2022 8:34 AM E DT documented as of this encounter Additional Source Comments The information contained in this document represents components of the legal health record. It is not the complete legal health record.[facility]
--- OUTSIDE RECORDS SUMMARY | 2017-10-02 00:05 | XMS_ITS | Encounter Summary ---
Author Organization [facility] Address [address] [facility] [address] [place] [address] Phone Care Team Providers Care Desk Lieutenant Name Role Phone Unavailable Primary Care Provider Unavailabl e Encounter Details Date Type Department Care Team (Late st Contact Info) Description 10/02/2017 12:05 AM EST Hospital Encounter [facility] OUTSIDE [address] [place] [address] Kiran Aguilera MD [address] [place] [phone] [email or web address] Social History Tobacco Use Types Packs/Day Years [...] Description 01/06/2026 2:30 PM EDT Office Visit [facility] [address] 9th [place] [address] Luis Clemente MD [address] [place] [address] Micha@[email or web address] 04/01/2026 2:30 PM EDT Office Visit [facility] DEPARTMENT OF NEUROLOGY 55 [facility] 835 [place] [address] Donte Veloz MD [address] [place] [phone] [email or web address] documented as of this encounter Procedures Procedure Name Priority Date/Time Associated Diagnosis Comments MRI BRAIN OUTSIDE (NO INTERPRETATION) Routine 10/02/2017 12:05 AM EST documented in this encounter Results * MRI Brain Outside (No Interpretation) (10/02/2017 12:05 AM EST) Narrative [facility] INTERFAC[facility] - [...] It is not the complete legal health record.[facility]
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
--- OUTSIDE RECORDS SUMMARY | 2025-08-27 19:16 | XMS_ITS | Encounter Summary ---
Author Organization [facility] Address [address] [place] [address] Phone Care Team Providers Care Dry Pan Feeder Name Role Phone Paty Johnson MD Primary Care Provid er Kiran Aguilera MD Unavailable [phone] Jadyn Bush PT Unavailable [email or web address] Sherrie Padilla MD Primary Care Provider Sindy Byrne Primary Care Provider Encounter Details Date Type Department Care Team (Late st Contact Info) Description 12/27/2022 Procedure Pass [facility] Imaging - MRI, [address] [address] Social History Tobacco Use Types Packs/Day Years [...] PM EDT Office Visit [facility] [address] [address] Luis Clemente MD [address] [place] [address] [email or web address] 04/01/2026 2:30 PM EDT Office Visit [facility] DEPARTMENT OF NEUROLOGY [address] [place] [address] Donte Veloz MD [address] [facility] [address] [place] [address] [email or web address] documented as of this encounter Visit Diagnoses Not on filedocumented in this encounter Additional Health Concerns Infection Onset Date Last Indicated Resolved Time COVID-19 Comment:See infection control note. 12/27/2022 12/08/2022 12/08/2022 12/27/2022 8:34 AM E DT documented as of this encounter Care Teams Dry Pan Feeder Relationship Specialty Start Date End Date Paty Johnson MD [address] [place] [address] PCP - General Internal Medicine 03/07/22 04/25/23 Sherrie Padilla MD [address] [place] [address] PCP - General Internal Medicine 04/26/23 03/12/24 Sindy Byrne PA [address] [place] [address] PCP - General Physician Slipcover Cutter 03/13/24 Kiran Aguilera MD [address] [place] [phone] [email or web address] Referring Physician Neurology 04/19/23 Jadyn Bush, PT [address] [place] [address] [email or web address] u Physical Therapist Physical Therapy 04/19/23 documented as of this encounter Additional Source Comments The information contained in this document represents components of the legal health record. It is not the complete legal health record.[facility]
--- OUTSIDE RECORDS SUMMARY | 2025-08-27 19:16 | XMS_ITS | Encounter Summary ---
Author Organization [facility] Address [address] [facility] [address] [facility] [address] [place] [address] Phone Care Team Providers Care Mail Handler Sorter Name Role Phone Paty Johnson MD Primary Care Provid er Kiran Aguilera MD Unavailable [phone] Jadyn Bush PT Unavailable [email or web address] Sherrie Padilla MD Primary Care Provider Sindy Byrne Primary Care Provider Encounter Details Date Type Department Care Team (Late st Contact Info) Description 07/03/2022 Procedure Pass [facility] Imaging - MRI, [address] [address] Social History Tobacco Use Types Packs/Day Years [...] PM EDT Office Visit [facility] [address] [address] Luis Clemente MD [address] [place] [address] Micha@[email or web address] 04/01/2026 2:30 PM EDT Office Visit [facility] OF [facility]UROLOGY [address] [facility] [address] [place] [address] Donte Veloz MD [address] [facility] [address] [place] [address] [email or web address] documented as of this encounter Visit Diagnoses Not on filedocumented in this encounter Additional Health Concerns Infection Onset Date Last Indicated Resolved Time COVID-19 Comment:See infection control note. 12/27/2022 12/08/2022 12/08/2022 12/27/2022 8:34 AM E DT documented as of this encounter Care Teams Mail Handler Sorter Relationship Specialty Start Date End Date Paty Johnson MD [address] [place] [address] PCP - General Internal Medicine 03/07/22 04/25/23 Sherrie Padilla MD [address] [place] [address] PCP - General Internal Medicine 04/26/23 03/12/24 Sindy Byrne PA [address] [place] [address] PCP - General Physician Coordinator Cardiopulmonary Services 03/13/24 Kiran Aguilera MD [address] [place] [address] [email or web address] Referring Physician Neurology 04/19/23 Jadyn Bush, PT [address] [place] [phone] [email or web address] u Physical Therapist Physical Therapy 04/19/23 documented as of this encounter Additional Source Comments The information contained in this document represents components of the legal health record. It is not the complete legal health record.[facility]
--- OUTSIDE RECORDS SUMMARY | 2025-08-27 19:16 | XMS_ITS | Clinical Summary ---
Author Organization [facility] Address [address] [place] [address] Phone Care Team Providers Care Owner Consulting Engineer Name Role Phone Kiran Aguilera MD Unavailable [phone] Jadyn Bush PT Unavailable [email or web address] Sindy Byrne Primary Care Provider [...] Diagnosed Date Imbalance 11/15/2023 Visual disturbance 11/15/2023 Social History Tobacco Use Types Packs/Day Years [...] Description 01/06/2026 2:30 PM EDT Office Visit [facility] [address] 9[address] [place] [address] Luis Clemente MD [address] [place] [address] Micha@[email or web address] 04/01/2026 2:30 PM EDT Office Visit [facility] DEPARTMENT OF NEUROLOGY [address] [facility] [address] [place] [address] Donte Veloz MD [address] [place] [address] [email or web address] Health Maintenance Due Date Last Done Comments HEPATITIS C SCREENING 1968 MAMMOGRAM 1990 COLOGUARD 1995 COLONOSCOPY 1995 COLORECTAL CANCER SCREENING 1995 FIT TEST 1995 FOBT 1995 SIGMOIDOSCOPY 1995 VIRTUAL COLONOSCOPY 1995 PNEUMOCOCCAL VACCINES (50+ years) (1 of 1 - PCV) 2000 ZOSTER VACCINES (1 of 2) 2000 OSTEOPOROSIS SCREENING INITI AL (ONE-TIME) 2015 DEPRESSION SCREENING 05/11/2023 05/11/2022 INFLUENZA VACCINE (#1) 2025 07/10/2023 COVID-19 VACCINE (1 - 2024-2 6 season) 2025 RSV VACCINE (1 - 1-dose 75+ series) [...] file Insurance MEDICARE PART A & B [facility] MEDEX SUPPLEMENT MEDICARE PART A & B [employer] MEDEX SUPPLEMENT MEDICARE PART A & B [employer] SUPPLEMENT MEDICARE PART A & B [employer] SUPPLEMENT MEDICARE PART A & B [employer] SUPPLEMENT MEDICARE PART A & B [employer] MED[employer] SUPPLEMENT MEDICARE PART A & B [employer] MED[employer] SUPPLEMENT MEDICARE PART A & B [employer] SUPPLEMENT MEDICARE PART A & B [employer] SUPPLEMENT Care Teams Owner Consulting Engineer Relationship Specialty Start Date End Date Sindy Byrne PA [address] [place] [address] PCP - General Physician Assistant Coach 03/13/24 Kiran Aguilera MD [address] [place] [address] [email or web address] Referring Physician Neurology 04/19/23 Jadyn Bush, PT [address] [place] [phone] [email or web address] u Physical Therapist Physical Therapy 04/19/23 Additional Source Comments The information contained in this document represents components of the legal health record. It is not the complete legal health record.[facility]
== END 2025-08-27 14:55 | disposition home or self-care (01) ==
LOC: HO.HOP 14:01
PROVIDERS: Visit Provider Clinical Nurse Specialist Psychiatric/Mental Health
DX: F41.1 Generalized anxiety disorder (principal); F34.1 Dysthymic disorder
CPT/HCPCS: 99214

== ENCOUNTER → 2025-08-27 14:01 | Outpatient (BNVA) | payer MEDICARE, SELFPAY | PROVIDERS: Visit Provider Clinical Nurse Specialist Psychiatric/Mental Health | DX: F41.1 Generalized anxiety disorder (principal); F34.1 Dysthymic disorder | CPT/HCPCS: 99212 ==